=== PATIENT | male | born 1950 | race Caucasian/White ===

== ENCOUNTER 2022-03-23 11:55 | Inpatient (IN) | payer MEDICARE ==
[~2022-03-23] VITALS: Ht 182.9 cm; Wt 84.8 kg
[2022-03-23] MEDS ORDERED: MORPHINE SULFATE 4 MG/ML CPJ (NOT FOR IM USE) IV STA ×2 (12:18→14:41)
[2022-03-23] MEDS ORDERED: ONDANSETRON HCL 4MG/2ML INJ IV STA ×2 (12:18→14:41)
[2022-03-23] MEDS ORDERED: PIPERACILLIN/TAZ 3.375G PREMIX 50 ML IV ONE (12:30)
[2022-03-23] MEDS ORDERED: SODIUM CHLORIDE 0.9% 1000ML BAG (SEPSIS BOLUS) IV ONE (12:30)
[2022-03-23] MEDS ORDERED: VANCOMYCIN 1G PREMIX 200 ML IV ONE (12:30)
[2022-03-23 12:51] LABS: HEMATOCRIT. 43.9 % (42.0-52.0); HEMOGLOBIN. 15.2 g/dL (14.0-18.0); MEAN CORPUSCULAR HEMOGLOBIN 34.5 pg (28.0-32.0); MEAN CORPUSCULAR VOLUME 99.4 fL (80.0-94.0); MEAN PLATELET VOLUME 7.8 fl (7.4-10.4); PLATELET 186 x1000/uL (130-400); RED BLOOD CELL COUNT 4.42 mill/uL (4.7-6.1); RED CELL DISTRIBUTION WIDTH 15.3 % (11.6-14.6)
[2022-03-23 13:00] LABS: CHLORIDE 100 mEq/L (98-107)
[2022-03-23 13:12] LABS: INR 1.1; PARTIAL THROMBOPLASTIN TIME 30.4 sec (23.4-31.0); PROTHROMBIN TIME 11.4 sec (9.6-11.0)
[2022-03-23 13:38] LABS: PLATELET ESTIMATE NORMAL
[2022-03-23] MEDS ORDERED: GUAIFENESIN 200MG/10ML SUGAR FREE UDC PO PRN (16:15)
[2022-03-23] MEDS ORDERED: ONDANSETRON HCL 4MG/2ML INJ IV PRN (16:15)
[2022-03-23] MEDS ORDERED: NA PHOS,M-B/NA PHOS,DI-BA ENEMA 118ML PR PRN (16:15)
[2022-03-23] MEDS ORDERED: CLONIDINE 0.1MG TABLET PO PRN (16:15)
[2022-03-23] MEDS ORDERED: MAGNESIUM/ALUMINUM HYDROXIDE/SIMETHICONE 30ML UDC PO PRN (16:15)
[2022-03-23] MEDS ORDERED: IPRATROPIUM/ALBUTEROL 0.5-3(2.5)MG/3ML NEB NEB PRN (16:15)
[2022-03-23] MEDS ORDERED: ACETAMINOPHEN 325MG TABLET PO PRN (16:15)
[2022-03-23] MEDS ORDERED: DOCUSATE SODIUM 100MG CAPSULE PO PRN (16:15)
[2022-03-23] MEDS ORDERED: NITROGLYCERIN 0.4MG TABLET SL SL PRN (16:15)
[2022-03-23] MEDS ORDERED: NALOXONE HCL 0.4MG/ML VIAL IV PRN (16:30)
[2022-03-23] MEDS: SODIUM CHLORIDE 0.9% 1,000 ML IV SCH ×2 (16:45→22:09)
[2022-03-23] MEDS: ENOXAPARIN 40MG/0.4ML SYR SUBCUT SCH (17:54)
[2022-03-23 18:11] LABS: ETHANOL BLOOD < 10 mg/dL; LDL CHOLESTEROL 96 mg/dL (5-100); TOTAL IRON BINDING CAPACITY 238 ug/dL (250-450)
[2022-03-23 18:20] LABS: HDL CHOLESTEROL 48 mg/dL (40-59); T4 FREE 1.35 ng/dL (0.76-1.46)
[2022-03-23 18:25] VITALS: BP 112/66
[2022-03-23 18:38] LABS: VITAMIN B12 SERUM 1919 pg/mL (211-911)
[2022-03-23 18:57] LABS: *AMPHETAMINES SCREEN URINE NEGATIVE (NEGATIVE); *BARBITURATES SCREEN URINE NEGATIVE (NEGATIVE); *BENZODIAZEPINES SCREEN URINE NEGATIVE (NEGATIVE); *COCAINE SCREEN URINE NEGATIVE (NEGATIVE); CANNABINOID URINE SCREEN NEGATIVE (NEGATIVE); METHADONE URINE SCREEN NEGATIVE (NEGATIVE); OPIATES URINE SCREEN PRESUMTIVE POSITIVE (NEGATIVE); PHENCYCLIDINE URINE SCREEN NEGATIVE (NEGATIVE)
[2022-03-23 20:00] VITALS: BP 97/65
[2022-03-23] MEDS ORDERED: PIPERACILLIN/TAZ 3.375G PREMIX 50 ML IV NR (20:00)
[2022-03-23] MEDS ORDERED: ZOLPIDEM TARTRATE 5MG TABLET PO PRN (21:00)
[2022-03-23] MEDS: ASCORBIC ACID 500 MG TABLET PO SCH (21:37)
[2022-03-23] MEDS: FAMOTIDINE 20MG TABLET PO SCH (21:37)
[2022-03-23] MEDS: KETOROLAC 15MG/ML VIAL IV PRN (22:01)
[2022-03-23] MEDS: PIPERACILLIN/TAZOBACTAM 3.375 G in DEXTROSE 5% WATER 50 ML IV SCH (22:24)
[2022-03-24] VITALS: BP 91/70
[2022-03-24 04:00] VITALS: BP 92/60
[2022-03-24] MEDS: PIPERACILLIN/TAZOBACTAM 3.375 G in DEXTROSE 5% WATER 50 ML IV SCH ×2 (05:09→14:38)
[2022-03-24] MEDS ORDERED: PIPERACILLIN/TAZOBACTAM 3.375G in DEXT 5% WATER 50ML IV SCH (06:00)
[2022-03-24 08:00] VITALS: BP 100/66
[2022-03-24 08:40] LABS: HEMATOCRIT. 36.9 % (42.0-52.0); HEMOGLOBIN. 12.6 g/dL (14.0-18.0); MEAN CORPUSCULAR HEMOGLOBIN 34.1 pg (28.0-32.0); MEAN CORPUSCULAR VOLUME 99.8 fL (80.0-94.0); MEAN PLATELET VOLUME 8.2 fl (7.4-10.4); PLATELET 147 x1000/uL (130-400); RED CELL DISTRIBUTION WIDTH 15.5 % (11.6-14.6)
[2022-03-24] MEDS: ZINC SULFATE 220 MG ( 50 ) CAPSULE PO SCH (08:41)
[2022-03-24] MEDS: CHOLECALCIFEROL (D3) 1000 UNIT TABLET PO SCH (08:42)
[2022-03-24] MEDS: ASCORBIC ACID 500 MG TABLET PO SCH ×2 (08:46→20:34)
[2022-03-24] MEDS ORDERED: VANCOMYCIN 1.25GM PMX (XELLIA) 250 ML IV SCH (09:00)
[2022-03-24 09:39] LABS: CHLORIDE 105 mEq/L (98-107); PHOSPHORUS 1.7 mg/dL (2.5-4.9)
[2022-03-24] MEDS ORDERED: CLINDAMYCIN 900 MG in DEXTROSE 5% WATER 50 ML IV SCH (10:15)
[2022-03-24] MEDS ORDERED: CLINDAMYCIN 900 MG PREMIX 50 ML IV SCH ×2 (10:30→12:00)
[2022-03-24] MEDS ORDERED: LIDOCAINE HCL 1% 20ML VIAL (Pyxis) INJ INFIL NR (10:30)
[2022-03-24] MEDS ORDERED: BUPIVACAINE HCL/PF 0.25% (2.5MG/ML) 10ML INFIL NR (10:30)
[2022-03-24 12:00] VITALS: BP 110/70
[2022-03-24] MEDS: VANCOMYCIN 1G PREMIX 200 ML IV SCH (14:20)
[2022-03-24] MEDS: CLINDAMYCIN 900 MG PREMIX 50 ML IV SCH ×2 (14:20→20:34)
[2022-03-24] MEDS: SODIUM CHLORIDE 0.9% 1,000 ML IV SCH ×2 (14:20→20:34)
[2022-03-24] MEDS ORDERED: TETANUS AND DIPHTHERIA TOX/PF 0.5ML SYR (ADULT) IM ONE (15:30)
[2022-03-24 16:00] VITALS: BP 101/65
[2022-03-24] MEDS: KETOROLAC 15MG/ML VIAL IV PRN ×2 (17:00→23:24)
[2022-03-24] MEDS: CEFTRIAXONE 2 G in DEXTROSE 5% WATER 50 ML IV SCH (17:01)
[2022-03-24] MEDS: ENOXAPARIN 40MG/0.4ML SYR SUBCUT SCH (17:02)
[2022-03-24 20:00] VITALS: BP 106/71
[2022-03-24] MEDS: FAMOTIDINE 20MG TABLET PO SCH (20:34)
[2022-03-24 22:27] LABS: PLATELET ESTIMATE NORMAL
[2022-03-25] VITALS: BP 123/78
[2022-03-25] MEDS: CLINDAMYCIN 900 MG PREMIX 50 ML IV SCH ×3 (03:06→22:53)
[2022-03-25 04:00] VITALS: BP 91/63
[2022-03-25] MEDS: VANCOMYCIN 1G PREMIX 200 ML IV SCH (06:01)
[2022-03-25 08:00] VITALS: BP 106/77
[2022-03-25] MEDS: CHOLECALCIFEROL (D3) 1000 UNIT TABLET PO SCH (08:33)
[2022-03-25] MEDS: ASCORBIC ACID 500 MG TABLET PO SCH ×2 (08:33→22:54)
[2022-03-25] MEDS: KETOROLAC 15MG/ML VIAL IV PRN (08:33)
[2022-03-25] MEDS: ZINC SULFATE 220 MG ( 50 ) CAPSULE PO SCH (08:33)
[2022-03-25] MEDS: SODIUM CHLORIDE 0.9% 1,000 ML IV SCH ×2 (08:34→17:52)
[2022-03-25 12:00] VITALS: BP 107/68
[2022-03-25 16:00] VITALS: BP 108/75
[2022-03-25] MEDS: CEFTRIAXONE 2 G in DEXTROSE 5% WATER 50 ML IV SCH (17:52)
[2022-03-25] MEDS: ENOXAPARIN 40MG/0.4ML SYR SUBCUT SCH (17:52)
[2022-03-25 20:00] VITALS: BP 115/77
[2022-03-25] MEDS: FAMOTIDINE 20MG TABLET PO SCH (22:54)
[2022-03-26] VITALS: BP 129/84
[2022-03-26] MEDS: SODIUM CHLORIDE 0.9% 1,000 ML IV SCH ×4 (00:23→16:09)
[2022-03-26] MEDS: VANCOMYCIN 1G PREMIX 200 ML IV SCH (00:23)
[2022-03-26 04:00] VITALS: BP 115/72
[2022-03-26] MEDS: CLINDAMYCIN 900 MG PREMIX 50 ML IV SCH ×3 (05:55→21:09)
[2022-03-26 08:00] VITALS: BP 128/83
[2022-03-26] MEDS ORDERED: POLYMYXIN B SULFATE 500000 UNITS/VIAL ONE (11:22)
[2022-03-26] MEDS ORDERED: LIDOCAINE HCL 1% 10 MG/ML 10ML VIAL ONE (11:22)
[2022-03-26] MEDS ORDERED: BUPIVACAINE HCL/PF 0.5% (5MG/ML) 10ML ONE (11:22)
[2022-03-26] MEDS ORDERED: MIDAZOLAM HCL 2 MG/2 ML VIAL ONE (11:26)
[2022-03-26] MEDS ORDERED: PROPOFOL 200MG/20ML VIAL IV ONE (11:26)
[2022-03-26] MEDS ORDERED: FENTANYL CITRATE/PF 50MCG/ML 2ML VIAL ONE (11:26)
[2022-03-26 15:44] VITALS: BP 124/82
[2022-03-26] MEDS: ASCORBIC ACID 500 MG TABLET PO SCH ×2 (15:52→21:07)
[2022-03-26] MEDS: ZINC SULFATE 220 MG ( 50 ) CAPSULE PO SCH (15:52)
[2022-03-26] MEDS: CHOLECALCIFEROL (D3) 1000 UNIT TABLET PO SCH (15:52)
[2022-03-26] MEDS: CEFTRIAXONE 2 G in DEXTROSE 5% WATER 50 ML IV SCH (15:52)
[2022-03-26 16:00] VITALS: BP 132/84
[2022-03-26] MEDS ORDERED: DEXTROSE 50% WATER 50ML SYRINGE IV PRN (16:45)
[2022-03-26] MEDS: INSULIN LISPRO 100 UNITS/ML SUBCUT SCH ×2 (17:10→21:00)
[2022-03-26] MEDS: ENOXAPARIN 40MG/0.4ML SYR SUBCUT SCH (17:55)
[2022-03-26 20:00] VITALS: BP 113/71
[2022-03-26] MEDS: BLOOD SUGAR DIAGNOSTIC STRIP TEST SCH (21:00)
[2022-03-26] MEDS: FAMOTIDINE 20MG TABLET PO SCH (21:07)
[2022-03-26] MEDS: TRAMADOL 50MG TABLET PO PRN (21:07)
[2022-03-26 22:22] LABS: HEMATOCRIT. 38.2 % (42.0-52.0); HEMOGLOBIN. 12.7 g/dL (14.0-18.0); MEAN CORPUSCULAR HEMOGLOBIN 33.3 pg (28.0-32.0); MEAN CORPUSCULAR VOLUME 100.3 fL (80.0-94.0); MEAN PLATELET VOLUME 9.1 fl (7.4-10.4); PLATELET 183 x1000/uL (130-400); RED BLOOD CELL COUNT 3.81 mill/uL (4.7-6.1); RED CELL DISTRIBUTION WIDTH 16.3 % (11.6-14.6)
[2022-03-26 22:40] LABS: CHLORIDE 102 mEq/L (98-107)
[2022-03-26 22:48] LABS: CREATINE KINASE 22 IU/L (39-308)
[2022-03-26 23:03] LABS: PLATELET ESTIMATE NORMAL
[2022-03-27] VITALS: BP 120/74
[2022-03-27 04:00] VITALS: BP 105/72
[2022-03-27] MEDS: SODIUM CHLORIDE 0.9% 1,000 ML IV SCH ×3 (04:05→20:33)
[2022-03-27] MEDS: CLINDAMYCIN 900 MG PREMIX 50 ML IV SCH ×3 (04:10→20:33)
[2022-03-27] MEDS: TRAMADOL 50MG TABLET PO PRN ×2 (04:15→12:48)
[2022-03-27] MEDS: ACETAMINOPHEN 325MG TABLET PO PRN (04:22)
[2022-03-27] MEDS: INSULIN LISPRO 100 UNITS/ML SUBCUT SCH ×4 (05:54→20:54)
[2022-03-27] MEDS: BLOOD SUGAR DIAGNOSTIC STRIP TEST SCH ×4 (05:54→20:54)
[2022-03-27 07:36] LABS: HEMOGLOBIN. 11.9 g/dL (14.0-18.0); MEAN CORPUSCULAR HEMOGLOBIN 33.5 pg (28.0-32.0); MEAN CORPUSCULAR VOLUME 98.8 fL (80.0-94.0); MEAN PLATELET VOLUME 8.1 fl (7.4-10.4); PLATELET 232 x1000/uL (130-400); RED BLOOD CELL COUNT 3.54 mill/uL (4.7-6.1); RED CELL DISTRIBUTION WIDTH 15.8 % (11.6-14.6)
[2022-03-27 08:00] VITALS: BP 103/71
[2022-03-27 08:46] LABS: CHLORIDE 104 mEq/L (98-107)
[2022-03-27 09:02] LABS: CREATINE KINASE 19 IU/L (39-308)
[2022-03-27] MEDS: ASCORBIC ACID 500 MG TABLET PO SCH ×2 (09:33→20:33)
[2022-03-27] MEDS: ZINC SULFATE 220 MG ( 50 ) CAPSULE PO SCH (09:33)
[2022-03-27] MEDS: CHOLECALCIFEROL (D3) 1000 UNIT TABLET PO SCH (09:33)
[2022-03-27] MEDS: SODIUM HYPOCHLORITE (0.25%) 480ML SOLUTION (HALF STRENGTH) TOP SCH (09:37)
[2022-03-27 11:13] LABS: PLATELET ESTIMATE NORMAL
[2022-03-27 12:00] VITALS: BP 100/57
[2022-03-27 16:00] VITALS: BP 110/75
[2022-03-27] MEDS: CEFTRIAXONE 2 G in DEXTROSE 5% WATER 50 ML IV SCH (16:28)
[2022-03-27] MEDS: ENOXAPARIN 40MG/0.4ML SYR SUBCUT SCH (16:29)
[2022-03-27 20:00] VITALS: BP 126/74
[2022-03-27] MEDS: FAMOTIDINE 20MG TABLET PO SCH (20:33)
[2022-03-28] VITALS: BP 128/82
[2022-03-28 04:00] VITALS: BP_SYST 120; BP_SYST 129; BP_DIAS 75; BP_DIAS 84
[2022-03-28] MEDS: CLINDAMYCIN 900 MG PREMIX 50 ML IV SCH ×3 (04:25→19:57)
[2022-03-28] MEDS: SODIUM CHLORIDE 0.9% 1,000 ML IV SCH ×2 (06:22→16:35)
[2022-03-28] MEDS: BLOOD SUGAR DIAGNOSTIC STRIP TEST SCH ×4 (06:22→20:31)
[2022-03-28] MEDS: INSULIN LISPRO 100 UNITS/ML SUBCUT SCH ×4 (06:22→20:34)
[2022-03-28 08:00] VITALS: BP 135/77
[2022-03-28] MEDS: ASCORBIC ACID 500 MG TABLET PO SCH ×2 (09:20→20:28)
[2022-03-28] MEDS: ZINC SULFATE 220 MG ( 50 ) CAPSULE PO SCH (09:20)
[2022-03-28] MEDS: CHOLECALCIFEROL (D3) 1000 UNIT TABLET PO SCH (09:20)
[2022-03-28] MEDS: TRAMADOL 50MG TABLET PO PRN ×2 (09:21→15:55)
[2022-03-28] MEDS: SODIUM HYPOCHLORITE (0.25%) 480ML SOLUTION (HALF STRENGTH) TOP SCH (09:27)
[2022-03-28 12:00] VITALS: BP 120/82
[2022-03-28 16:00] VITALS: BP 120/75
[2022-03-28] MEDS: CEFTRIAXONE 2 G in DEXTROSE 5% WATER 50 ML IV SCH (16:28)
[2022-03-28] MEDS: ENOXAPARIN 40MG/0.4ML SYR SUBCUT SCH (16:29)
[2022-03-28 18:05] LABS: HEMATOCRIT. 36.4 % (42.0-52.0); HEMOGLOBIN. 12.2 g/dL (14.0-18.0); MEAN CORPUSCULAR HEMOGLOBIN 33.5 pg (28.0-32.0); MEAN CORPUSCULAR VOLUME 99.7 fL (80.0-94.0); MEAN PLATELET VOLUME 8.4 fl (7.4-10.4); PLATELET 274 x1000/uL (130-400); RED BLOOD CELL COUNT 3.65 mill/uL (4.7-6.1); RED CELL DISTRIBUTION WIDTH 15.9 % (11.6-14.6)
[2022-03-28] MEDS ORDERED: NALOXONE HCL 0.4MG/ML VIAL IV PRN (18:45)
[2022-03-28 20:00] VITALS: BP 145/87
[2022-03-28] MEDS: FAMOTIDINE 20MG TABLET PO SCH (20:35)
[2022-03-28 22:28] LABS: PLATELET ESTIMATE NORMAL
[2022-03-29] VITALS: BP 147/87
[2022-03-29] MEDS: SODIUM CHLORIDE 0.9% 1,000 ML IV SCH ×3 (03:07→21:42)
[2022-03-29] MEDS: CLINDAMYCIN 900 MG PREMIX 50 ML IV SCH ×3 (03:11→20:38)
[2022-03-29 04:00] VITALS: BP 119/76
[2022-03-29 05:35] LABS: CHLORIDE 107 mEq/L (98-107)
[2022-03-29 05:39] LABS: BASOPHILS % 0.3 % (0.0-2.0); EOSINOPHILS % 1.2 % (0.0-5.0); HEMATOCRIT. 35.8 % (42.0-52.0); HEMOGLOBIN. 12.1 g/dL (14.0-18.0); LYMPHOCYTES % 9.1 % (20.0-50.0); MEAN CORPUSCULAR HEMOGLOBIN 33.4 pg (28.0-32.0); MEAN CORPUSCULAR VOLUME 99.3 fL (80.0-94.0); MEAN PLATELET VOLUME 8.2 fl (7.4-10.4); MONOCYTES % 5.4 % (2.0-8.0); PLATELET 287 x1000/uL (130-400); RED BLOOD CELL COUNT 3.61 mill/uL (4.7-6.1); RED CELL DISTRIBUTION WIDTH 15.7 % (11.6-14.6)
[2022-03-29] MEDS: BLOOD SUGAR DIAGNOSTIC STRIP TEST SCH ×4 (06:01→20:29)
[2022-03-29] MEDS: INSULIN LISPRO 100 UNITS/ML SUBCUT SCH ×4 (06:29→20:29)
[2022-03-29 08:00] VITALS: BP 137/87
[2022-03-29] MEDS: CHOLECALCIFEROL (D3) 1000 UNIT TABLET PO SCH (08:56)
[2022-03-29] MEDS: ZINC SULFATE 220 MG ( 50 ) CAPSULE PO SCH (08:56)
[2022-03-29] MEDS: ASCORBIC ACID 500 MG TABLET PO SCH ×2 (08:56→20:39)
[2022-03-29] MEDS: SODIUM HYPOCHLORITE (0.25%) 480ML SOLUTION (HALF STRENGTH) TOP SCH (08:57)
[2022-03-29 12:00] VITALS: BP 127/86
[2022-03-29] MEDS: ACETAMINOPHEN 325MG TABLET PO PRN (12:06)
[2022-03-29 16:00] VITALS: BP 125/81
[2022-03-29] MEDS: CEFTRIAXONE 2 G in DEXTROSE 5% WATER 50 ML IV SCH (16:53)
[2022-03-29] MEDS: ENOXAPARIN 40MG/0.4ML SYR SUBCUT SCH (17:19)
[2022-03-29 20:00] VITALS: BP_SYST 131; BP_SYST 197; BP_DIAS 88; BP_DIAS 99
[2022-03-29] MEDS: LINEZOLID 600MG TABLET PO SCH (20:39)
[2022-03-29] MEDS: FAMOTIDINE 20MG TABLET PO SCH (20:39)
[2022-03-29] MEDS: TRAMADOL 50MG TABLET PO PRN (22:53)
[2022-03-30] VITALS: BP 128/86
[2022-03-30] MEDS: CLINDAMYCIN 900 MG PREMIX 50 ML IV SCH ×3 (03:59→20:16)
[2022-03-30 04:00] VITALS: BP 148/87
[2022-03-30 06:08] LABS: BASOPHILS % 0.4 % (0.0-2.0); HEMATOCRIT. 36.3 % (42.0-52.0); HEMOGLOBIN. 12.5 g/dL (14.0-18.0); LYMPHOCYTES % 11.1 % (20.0-50.0); MEAN CORPUSCULAR HEMOGLOBIN 34.2 pg (28.0-32.0); MEAN CORPUSCULAR VOLUME 99.5 fL (80.0-94.0); MEAN PLATELET VOLUME 7.9 fl (7.4-10.4); MONOCYTES % 4.9 % (2.0-8.0); NEUTROPHILS % 82.6 % (40.0-76.0); PLATELET 317 x1000/uL (130-400); RED BLOOD CELL COUNT 3.65 mill/uL (4.7-6.1); RED CELL DISTRIBUTION WIDTH 15.4 % (11.6-14.6)
[2022-03-30] MEDS: BLOOD SUGAR DIAGNOSTIC STRIP TEST SCH ×4 (06:40→20:17)
[2022-03-30] MEDS: INSULIN LISPRO 100 UNITS/ML SUBCUT SCH ×4 (06:42→20:17)
[2022-03-30 07:48] LABS: CHLORIDE 105 mEq/L (98-107)
[2022-03-30 08:00] VITALS: BP 142/90
[2022-03-30] MEDS: ASCORBIC ACID 500 MG TABLET PO SCH ×2 (08:53→20:16)
[2022-03-30] MEDS: LINEZOLID 600MG TABLET PO SCH ×2 (08:53→20:16)
[2022-03-30] MEDS: ZINC SULFATE 220 MG ( 50 ) CAPSULE PO SCH (08:54)
[2022-03-30] MEDS: CHOLECALCIFEROL (D3) 1000 UNIT TABLET PO SCH (08:54)
[2022-03-30] MEDS: SODIUM CHLORIDE 0.9% 1,000 ML IV SCH ×2 (08:55→19:00)
[2022-03-30] MEDS: SODIUM HYPOCHLORITE (0.25%) 480ML SOLUTION (HALF STRENGTH) TOP SCH (08:55)
[2022-03-30] MEDS: TRAMADOL 50MG TABLET PO PRN ×2 (09:02→20:25)
[2022-03-30 12:00] VITALS: BP 155/93
[2022-03-30] MEDS: AMLODIPINE 5MG TABLET PO SCH (15:27)
[2022-03-30 16:00] VITALS: BP 136/82
[2022-03-30] MEDS: CEFTRIAXONE 2 G in DEXTROSE 5% WATER 50 ML IV SCH (18:15)
[2022-03-30] MEDS: ENOXAPARIN 40MG/0.4ML SYR SUBCUT SCH (18:16)
[2022-03-30 20:00] VITALS: BP 151/78
[2022-03-30] MEDS: FAMOTIDINE 20MG TABLET PO SCH (20:16)
[2022-03-31] VITALS: BP 152/94
[2022-03-31] MEDS: CLINDAMYCIN 900 MG PREMIX 50 ML IV SCH ×3 (03:02→20:32)
[2022-03-31] MEDS: TRAMADOL 50MG TABLET PO PRN ×3 (03:08→16:50)
[2022-03-31 04:00] VITALS: BP 137/87
[2022-03-31] MEDS: SODIUM CHLORIDE 0.9% 1,000 ML IV SCH ×3 (04:32→23:33)
[2022-03-31] MEDS: BLOOD SUGAR DIAGNOSTIC STRIP TEST SCH ×4 (05:40→20:39)
[2022-03-31] MEDS: INSULIN LISPRO 100 UNITS/ML SUBCUT SCH ×4 (06:10→20:39)
[2022-03-31 08:00] VITALS: BP 126/83
[2022-03-31 08:12] LABS: BASOPHILS % 0.4 % (0.0-2.0); HEMATOCRIT. 35.4 % (42.0-52.0); HEMOGLOBIN. 12.2 g/dL (14.0-18.0); LYMPHOCYTES % 10.2 % (20.0-50.0); MEAN CORPUSCULAR HEMOGLOBIN 34.5 pg (28.0-32.0); MEAN CORPUSCULAR VOLUME 100.1 fL (80.0-94.0); MEAN PLATELET VOLUME 8.3 fl (7.4-10.4); MONOCYTES % 6.3 % (2.0-8.0); NEUTROPHILS % 82.1 % (40.0-76.0); PLATELET 378 x1000/uL (130-400); RED BLOOD CELL COUNT 3.53 mill/uL (4.7-6.1); RED CELL DISTRIBUTION WIDTH 15.7 % (11.6-14.6)
[2022-03-31 09:10] LABS: CHLORIDE 103 mEq/L (98-107)
[2022-03-31] MEDS: ZINC SULFATE 220 MG ( 50 ) CAPSULE PO SCH (09:28)
[2022-03-31] MEDS: CHOLECALCIFEROL (D3) 1000 UNIT TABLET PO SCH (09:28)
[2022-03-31] MEDS: LINEZOLID 600MG TABLET PO SCH ×2 (09:29→20:32)
[2022-03-31] MEDS: ASCORBIC ACID 500 MG TABLET PO SCH ×2 (09:29→20:32)
[2022-03-31] MEDS: AMLODIPINE 5MG TABLET PO SCH (09:29)
[2022-03-31 09:30] LABS: PHOSPHORUS 2.8 mg/dL (2.5-4.9)
[2022-03-31] MEDS: SODIUM HYPOCHLORITE (0.25%) 480ML SOLUTION (HALF STRENGTH) TOP SCH (09:30)
[2022-03-31 12:00] VITALS: BP 130/80
[2022-03-31 16:00] VITALS: BP 125/82
[2022-03-31] MEDS: ENOXAPARIN 40MG/0.4ML SYR SUBCUT SCH (16:45)
[2022-03-31] MEDS: CEFTRIAXONE 2 G in DEXTROSE 5% WATER 50 ML IV SCH (16:45)
[2022-03-31] MEDS ORDERED: MAGNESIUM 1 G PREMIX 100 ML IV NR (18:00)
[2022-03-31 20:00] VITALS: BP 136/81
[2022-03-31] MEDS: FAMOTIDINE 20MG TABLET PO SCH (20:32)
[2022-04-01] VITALS: BP 135/85
[2022-04-01] MEDS: CLINDAMYCIN 900 MG PREMIX 50 ML IV SCH ×2 (03:26→11:40)
[2022-04-01 04:00] VITALS: BP 137/79
[2022-04-01] MEDS: BLOOD SUGAR DIAGNOSTIC STRIP TEST SCH ×4 (05:41→20:46)
[2022-04-01] MEDS: INSULIN LISPRO 100 UNITS/ML SUBCUT SCH ×4 (06:17→20:46)
[2022-04-01 06:36] LABS: BASOPHILS % 0.3 % (0.0-2.0); EOSINOPHILS % 0.9 % (0.0-5.0); HEMATOCRIT. 32.4 % (42.0-52.0); HEMOGLOBIN. 11.3 g/dL (14.0-18.0); LYMPHOCYTES % 12.7 % (20.0-50.0); MEAN CORPUSCULAR HEMOGLOBIN 34.3 pg (28.0-32.0); MEAN CORPUSCULAR VOLUME 98.7 fL (80.0-94.0); MONOCYTES % 7.5 % (2.0-8.0); NEUTROPHILS % 78.6 % (40.0-76.0); PLATELET 373 x1000/uL (130-400); RED BLOOD CELL COUNT 3.28 mill/uL (4.7-6.1); RED CELL DISTRIBUTION WIDTH 15.3 % (11.6-14.6)
[2022-04-01 07:04] LABS: CHLORIDE 103 mEq/L (98-107)
[2022-04-01 07:08] LABS: PHOSPHORUS 2.5 mg/dL (2.5-4.9)
[2022-04-01 08:00] VITALS: BP 140/85
[2022-04-01] MEDS: ASCORBIC ACID 500 MG TABLET PO SCH ×2 (08:48→20:46)
[2022-04-01] MEDS: CHOLECALCIFEROL (D3) 1000 UNIT TABLET PO SCH (08:48)
[2022-04-01] MEDS: ZINC SULFATE 220 MG ( 50 ) CAPSULE PO SCH (08:48)
[2022-04-01] MEDS: TRAMADOL 50MG TABLET PO PRN ×3 (08:48→22:58)
[2022-04-01] MEDS: LINEZOLID 600MG TABLET PO SCH ×2 (08:48→20:46)
[2022-04-01] MEDS: AMLODIPINE 5MG TABLET PO SCH (08:48)
[2022-04-01] MEDS: SODIUM HYPOCHLORITE (0.25%) 480ML SOLUTION (HALF STRENGTH) TOP SCH (08:49)
[2022-04-01] MEDS ORDERED: MAGNESIUM 2 G PREMIX 50 ML IV NR (10:00)
[2022-04-01] MEDS: SODIUM CHLORIDE 0.9% 1,000 ML IV SCH ×2 (10:33→20:45)
[2022-04-01 12:00] VITALS: BP 135/90
[2022-04-01] MEDS ORDERED: [UNRECOGNIZED DRUG - REMARK] XX SCH (14:00)
[2022-04-01 16:00] VITALS: BP 125/84
[2022-04-01] MEDS: CEFTRIAXONE 2 G in DEXTROSE 5% WATER 50 ML IV SCH (16:40)
[2022-04-01] MEDS: ENOXAPARIN 40MG/0.4ML SYR SUBCUT SCH (16:41)
[2022-04-01 20:00] VITALS: BP 114/78
[2022-04-01] MEDS: FAMOTIDINE 20MG TABLET PO SCH (20:47)
[2022-04-02] VITALS: BP 144/86
[2022-04-02] MEDS: SODIUM CHLORIDE 0.9% 1,000 ML IV SCH ×2 (00:17→17:28)
[2022-04-02 04:00] VITALS: BP 143/74
[2022-04-02] MEDS: BLOOD SUGAR DIAGNOSTIC STRIP TEST SCH ×4 (05:40→20:58)
[2022-04-02 06:53] LABS: HEMATOCRIT 33.2 % (42.0-52.0); HEMOGLOBIN 11.4 g/dL (14.0-18.0); MEAN CORPUSCULAR HEMOGLOBIN 34.1 pg (28.0-32.0); MEAN CORPUSCULAR VOLUME 99.2 fL (80.0-94.0); PLATELET 413 x1000/uL (130-400); RED BLOOD CELL COUNT 3.35 mill/uL (4.7-6.1); RED CELL DISTRIBUTION WIDTH 15.2 % (11.6-14.6)
[2022-04-02] MEDS ORDERED: POLYMYXIN B SULFATE 500000 UNITS/VIAL ONE (06:56)
[2022-04-02] MEDS ORDERED: BUPIVACAINE HCL/PF 0.5% (5MG/ML) 10ML ONE (06:57)
[2022-04-02] MEDS ORDERED: LIDOCAINE HCL 1% 10 MG/ML 10ML VIAL ONE (06:57)
[2022-04-02] MEDS ORDERED: PROPOFOL 200MG/20ML VIAL IV ONE (07:06)
[2022-04-02] MEDS ORDERED: FENTANYL CITRATE/PF 50MCG/ML 2ML VIAL ONE (07:06)
[2022-04-02] MEDS ORDERED: MIDAZOLAM HCL 2 MG/2 ML VIAL ONE (07:07)
[2022-04-02] MEDS: INSULIN LISPRO 100 UNITS/ML SUBCUT SCH ×4 (07:10→20:59)
[2022-04-02] MEDS ORDERED: PHENYLEPHRINE HCL 10 MG/ML 1ML (IV VIAL) IV ONE (07:12)
[2022-04-02] MEDS ORDERED: LIDOCAINE HCL 2% 5ML SYRINGE IV ONE (07:23)
[2022-04-02] MEDS: LINEZOLID 600MG TABLET PO SCH ×2 (09:00→21:13)
[2022-04-02] MEDS: CHOLECALCIFEROL (D3) 1000 UNIT TABLET PO SCH (09:00)
[2022-04-02] MEDS: AMLODIPINE 5MG TABLET PO SCH (09:00)
[2022-04-02] MEDS: ZINC SULFATE 220 MG ( 50 ) CAPSULE PO SCH (09:00)
[2022-04-02] MEDS: SODIUM HYPOCHLORITE (0.25%) 480ML SOLUTION (HALF STRENGTH) TOP SCH (09:00)
[2022-04-02] MEDS: ASCORBIC ACID 500 MG TABLET PO SCH ×2 (09:00→20:58)
[2022-04-02] MEDS: HYDROMORPHONE HCL/PF 2MG/ML CPJ IV PRN ×3 (09:03→09:42)
[2022-04-02 10:30] VITALS: BP 123/95
[2022-04-02 11:20] LABS: CHLORIDE 103 mEq/L (98-107)
[2022-04-02 12:00] VITALS: BP 127/81
[2022-04-02 12:26] LABS: PHOSPHORUS 2.5 mg/dL (2.5-4.9)
[2022-04-02] MEDS: MORPHINE SULFATE 2 MG/ML CPJ (NOT FOR IM USE) IV PRN ×2 (12:27→17:29)
[2022-04-02] MEDS: TRAMADOL 50MG TABLET PO PRN ×2 (14:23→20:58)
[2022-04-02 16:00] VITALS: BP 150/96
[2022-04-02] MEDS: ENOXAPARIN 40MG/0.4ML SYR SUBCUT SCH (17:28)
[2022-04-02] MEDS: CEFTRIAXONE 2 G in DEXTROSE 5% WATER 50 ML IV SCH (17:28)
[2022-04-02 20:00] VITALS: BP 142/89
[2022-04-02] MEDS: FAMOTIDINE 20MG TABLET PO SCH (20:58)
[2022-04-03] VITALS: BP 127/79
[2022-04-03 04:00] VITALS: BP 147/89
[2022-04-03] MEDS: BLOOD SUGAR DIAGNOSTIC STRIP TEST SCH ×4 (06:28→20:07)
[2022-04-03] MEDS: INSULIN LISPRO 100 UNITS/ML SUBCUT SCH ×4 (06:28→20:42)
[2022-04-03 07:52] LABS: BASOPHILS % 0.5 % (0.0-2.0); EOSINOPHILS % 1.4 % (0.0-5.0); HEMATOCRIT. 31.5 % (42.0-52.0); HEMOGLOBIN. 10.6 g/dL (14.0-18.0); LYMPHOCYTES % 18.5 % (20.0-50.0); MEAN CORPUSCULAR HEMOGLOBIN 33.1 pg (28.0-32.0); MEAN CORPUSCULAR VOLUME 97.9 fL (80.0-94.0); MEAN PLATELET VOLUME 7.8 fl (7.4-10.4); MONOCYTES % 8.9 % (2.0-8.0); NEUTROPHILS % 70.7 % (40.0-76.0); PLATELET 413 x1000/uL (130-400); RED BLOOD CELL COUNT 3.21 mill/uL (4.7-6.1); RED CELL DISTRIBUTION WIDTH 15.4 % (11.6-14.6)
[2022-04-03 08:00] VITALS: BP 129/79
[2022-04-03] MEDS: ASCORBIC ACID 500 MG TABLET PO SCH ×2 (09:15→20:08)
[2022-04-03] MEDS: LINEZOLID 600MG TABLET PO SCH ×2 (09:15→20:08)
[2022-04-03] MEDS: ZINC SULFATE 220 MG ( 50 ) CAPSULE PO SCH (09:15)
[2022-04-03] MEDS: CHOLECALCIFEROL (D3) 1000 UNIT TABLET PO SCH (09:15)
[2022-04-03] MEDS: AMLODIPINE 5MG TABLET PO SCH (09:15)
[2022-04-03] MEDS: SODIUM CHLORIDE 0.9% 1,000 ML IV SCH (09:16)
[2022-04-03] MEDS: SODIUM HYPOCHLORITE (0.25%) 480ML SOLUTION (HALF STRENGTH) TOP SCH (09:16)
[2022-04-03 09:17] LABS: CHLORIDE 104 mEq/L (98-107)
[2022-04-03 09:34] LABS: PHOSPHORUS 1.9 mg/dL (2.5-4.9)
[2022-04-03] MEDS: TRAMADOL 50MG TABLET PO PRN ×2 (09:34→17:43)
[2022-04-03 12:00] VITALS: BP 118/83
[2022-04-03 16:00] VITALS: BP 137/81
[2022-04-03] MEDS: CEFTRIAXONE 2 G in DEXTROSE 5% WATER 50 ML IV SCH (17:42)
[2022-04-03] MEDS: ENOXAPARIN 40MG/0.4ML SYR SUBCUT SCH (17:42)
[2022-04-03 20:00] VITALS: BP_SYST 113; BP_SYST 134; BP_DIAS 94
[2022-04-03] MEDS: FAMOTIDINE 20MG TABLET PO SCH (20:08)
[2022-04-03] MEDS: MORPHINE SULFATE 2 MG/ML CPJ (NOT FOR IM USE) IV PRN (21:27)
[2022-04-04] VITALS: BP 143/84
[2022-04-04] MEDS: SODIUM CHLORIDE 0.9% 1,000 ML IV SCH ×2 (02:00→17:43)
[2022-04-04] MEDS: TRAMADOL 50MG TABLET PO PRN ×3 (03:44→21:46)
[2022-04-04 04:00] VITALS: BP 140/87
[2022-04-04] MEDS: BLOOD SUGAR DIAGNOSTIC STRIP TEST SCH ×4 (05:42→21:38)
[2022-04-04] MEDS: INSULIN LISPRO 100 UNITS/ML SUBCUT SCH ×4 (05:56→21:00)
[2022-04-04 08:00] VITALS: BP 153/95
[2022-04-04] MEDS: LINEZOLID 600MG TABLET PO SCH ×2 (08:38→21:38)
[2022-04-04] MEDS: ZINC SULFATE 220 MG ( 50 ) CAPSULE PO SCH (08:38)
[2022-04-04] MEDS: CHOLECALCIFEROL (D3) 1000 UNIT TABLET PO SCH (08:38)
[2022-04-04] MEDS: SODIUM HYPOCHLORITE (0.25%) 480ML SOLUTION (HALF STRENGTH) TOP SCH (08:38)
[2022-04-04] MEDS: AMLODIPINE 5MG TABLET PO SCH (08:38)
[2022-04-04] MEDS: ASCORBIC ACID 500 MG TABLET PO SCH ×2 (08:38→21:38)
[2022-04-04] MEDS: MORPHINE SULFATE 2 MG/ML CPJ (NOT FOR IM USE) IV PRN (08:48)
[2022-04-04] MEDS ORDERED: CEPH500T MT ×2 (09:34)
[2022-04-04] MEDS ORDERED: ZINC220C2 PO ×2 (09:34)
[2022-04-04] MEDS ORDERED: ASCO500T20 PO ×2 (09:34)
[2022-04-04] MEDS ORDERED: IBUP-2029 MT ×2 (09:36)
[2022-04-04 10:54] LABS: BASOPHILS % 1.1 % (0.0-2.0); EOSINOPHILS % 1.6 % (0.0-5.0); HEMATOCRIT. 34.5 % (42.0-52.0); HEMOGLOBIN. 11.7 g/dL (14.0-18.0); MEAN CORPUSCULAR HEMOGLOBIN 33.9 pg (28.0-32.0); MEAN PLATELET VOLUME 7.7 fl (7.4-10.4); MONOCYTES % 10.3 % (2.0-8.0); PLATELET 459 x1000/uL (130-400); RED BLOOD CELL COUNT 3.45 mill/uL (4.7-6.1); RED CELL DISTRIBUTION WIDTH 15.1 % (11.6-14.6)
[2022-04-04 10:59] LABS: CHLORIDE 102 mEq/L (98-107)
[2022-04-04 11:09] LABS: PHOSPHORUS 2.4 mg/dL (2.5-4.9)
[2022-04-04 12:00] VITALS: BP 124/89
[2022-04-04 16:00] VITALS: BP 140/89
[2022-04-04] MEDS: CEFTRIAXONE 2 G in DEXTROSE 5% WATER 50 ML IV SCH (16:48)
[2022-04-04] MEDS: ENOXAPARIN 40MG/0.4ML SYR SUBCUT SCH (16:49)
[2022-04-04 20:00] VITALS: BP 136/87
[2022-04-04] MEDS: FAMOTIDINE 20MG TABLET PO SCH (21:38)
[2022-04-05] VITALS: BP 150/96
[2022-04-05 04:00] VITALS: BP 142/86
[2022-04-05] MEDS: INSULIN LISPRO 100 UNITS/ML SUBCUT SCH ×4 (07:10→21:00)
[2022-04-05] MEDS: BLOOD SUGAR DIAGNOSTIC STRIP TEST SCH ×4 (07:26→21:00)
[2022-04-05 08:00] VITALS: BP 138/79
[2022-04-05] MEDS: LINEZOLID 600MG TABLET PO SCH ×2 (08:34→20:59)
[2022-04-05] MEDS: ASCORBIC ACID 500 MG TABLET PO SCH ×2 (08:34→20:59)
[2022-04-05] MEDS: AMLODIPINE 5MG TABLET PO SCH (08:34)
[2022-04-05] MEDS: SODIUM HYPOCHLORITE (0.25%) 480ML SOLUTION (HALF STRENGTH) TOP SCH (08:35)
[2022-04-05] MEDS: CHOLECALCIFEROL (D3) 1000 UNIT TABLET PO SCH (08:35)
[2022-04-05] MEDS: ZINC SULFATE 220 MG ( 50 ) CAPSULE PO SCH (08:35)
[2022-04-05] MEDS ORDERED: CEPH500T MT (09:18)
[2022-04-05] MEDS ORDERED: IBUP-2029 MT (09:20)
[2022-04-05] MEDS ORDERED: ZINC100T8 MT (09:20)
[2022-04-05] MEDS ORDERED: AMLO5TAB88 PO (09:20)
[2022-04-05] MEDS ORDERED: ASCO-339 MT (09:20)
[2022-04-05] MEDS ORDERED: MAGNESIUM 2 G PREMIX 50 ML IV SCH (10:00)
[2022-04-05] MEDS ORDERED: POTASSIUM PHOS,M-BASIC-D-BASIC 10 MMOL in DEXT 5% WATER 246.6667 ML IV SCH (10:00)
[2022-04-05 11:28] LABS: BASOPHILS % 1.1 % (0.0-2.0); EOSINOPHILS % 1.6 % (0.0-5.0); HEMATOCRIT. 33.5 % (42.0-52.0); HEMOGLOBIN. 11.4 g/dL (14.0-18.0); MEAN CORPUSCULAR HEMOGLOBIN 34.1 pg (28.0-32.0); MEAN CORPUSCULAR VOLUME 100.1 fL (80.0-94.0); MONOCYTES % 11.5 % (2.0-8.0); NEUTROPHILS % 65.8 % (40.0-76.0); PLATELET 416 x1000/uL (130-400); RED BLOOD CELL COUNT 3.35 mill/uL (4.7-6.1); RED CELL DISTRIBUTION WIDTH 15.3 % (11.6-14.6)
[2022-04-05] MEDS: SODIUM CHLORIDE 0.9% 1,000 ML IV SCH (11:49)
[2022-04-05 12:00] VITALS: BP 131/82
[2022-04-05 13:13] LABS: CHLORIDE 102 mEq/L (98-107)
[2022-04-05 13:21] LABS: PHOSPHORUS 2.4 mg/dL (2.5-4.9)
[2022-04-05] MEDS: MORPHINE SULFATE 2 MG/ML CPJ (NOT FOR IM USE) IV PRN (15:40)
[2022-04-05 16:00] VITALS: BP 138/93
[2022-04-05] MEDS: CEFTRIAXONE 2 G in DEXTROSE 5% WATER 50 ML IV SCH (17:06)
[2022-04-05] MEDS: TRAMADOL 50MG TABLET PO PRN (17:06)
[2022-04-05] MEDS: ENOXAPARIN 40MG/0.4ML SYR SUBCUT SCH (17:07)
[2022-04-05 20:00] VITALS: BP 135/89
[2022-04-05] MEDS: FAMOTIDINE 20MG TABLET PO SCH (20:59)
[2022-04-06] VITALS: BP 124/81
[2022-04-06] MEDS: TRAMADOL 50MG TABLET PO PRN ×2 (01:16→08:14)
[2022-04-06 04:00] VITALS: BP 129/88
[2022-04-06 05:58] LABS: HEMATOCRIT 33.8 % (42.0-52.0); HEMOGLOBIN 11.9 g/dL (14.0-18.0); MEAN CORPUSCULAR HEMOGLOBIN 34.8 pg (28.0-32.0); MEAN CORPUSCULAR VOLUME 98.7 fL (80.0-94.0); PLATELET 448 x1000/uL (130-400); RED BLOOD CELL COUNT 3.43 mill/uL (4.7-6.1); RED CELL DISTRIBUTION WIDTH 15.3 % (11.6-14.6)
[2022-04-06] MEDS: INSULIN LISPRO 100 UNITS/ML SUBCUT SCH (07:10)
[2022-04-06] MEDS: BLOOD SUGAR DIAGNOSTIC STRIP TEST SCH (07:39)
[2022-04-06 08:00] VITALS: BP 134/85
[2022-04-06] MEDS: ZINC SULFATE 220 MG ( 50 ) CAPSULE PO SCH (08:12)
[2022-04-06] MEDS: ASCORBIC ACID 500 MG TABLET PO SCH (08:12)
[2022-04-06] MEDS: CHOLECALCIFEROL (D3) 1000 UNIT TABLET PO SCH (08:13)
[2022-04-06] MEDS: LINEZOLID 600MG TABLET PO SCH (08:13)
[2022-04-06] MEDS: AMLODIPINE 5MG TABLET PO SCH (08:13)
[2022-04-06] MEDS: SODIUM HYPOCHLORITE (0.25%) 480ML SOLUTION (HALF STRENGTH) TOP SCH (08:29)
[2022-04-06 08:38] VITALS: BP 134/85
[2022-04-06 09:00] LABS: CHLORIDE 104 mEq/L (98-107)
[2022-04-06 09:06] LABS: PHOSPHORUS 2.9 mg/dL (2.5-4.9)
== END 2022-04-06 09:15 | disposition home or self-care (01) | DRG 853 ==
LOC: ER 11:55 → 7EST 15:24 → EDBEDREQ 15:25 → EDBEDREQTM 15:25 → SUPCPDRO 16:16
PROVIDERS: ADMIT Internal Medicine; ATTEND Internal Medicine
PROC: 0LBW0ZZ Excision of Left Foot Tendon, Open Approach (ICD-10-PCS; principal; 2022-03-24)
PROC: 0LBW0ZZ Excision of Left Foot Tendon, Open Approach (ICD-10-PCS; 2022-03-26)
PROC: 0LBW0ZZ Excision of Left Foot Tendon, Open Approach (ICD-10-PCS; 2022-04-02)
DX: A41.9 Sepsis, unspecified organism (principal); A48.0 Gas gangrene; N17.0 Acute kidney failure with tubular necrosis; E44.0 Moderate protein-calorie malnutrition; E11.52 Type 2 diabetes mellitus with diabetic peripheral angiopathy with gangrene; L03.116 Cellulitis of left lower limb; E87.1 Hypo-osmolality and hyponatremia; Z20.822 Contact with and (suspected) exposure to COVID-19; E87.6 Hypokalemia; R65.20 Severe sepsis without septic shock; I10 Essential (primary) hypertension; Z68.25 Body mass index [BMI] 25.0-25.9, adult
CPT/HCPCS: 36415; 71045; 73630; 73721; 80048; 80053; 80061; 80202; 80305; 80320; 82550; 82607; 82746; 82962; 83036; 83540; 83550; 83605; 83735; 83880; 84100; 84145; 84439; 84443; 85025; 85027; 87070; 87075; 87077; 87426; 88305; 93005; 93306; 93923; 93970; 97116; 97161; 97166; 97535; 99291; J0696; J1170; J1650; J1815; J1885; J2250; J2270; J2370; J2405; J2543; J2704; J3010; J3370; J3475; J3490; J7030; J7060; G0480